=== PATIENT | male | born 1945 | race Caucasian/White ===

== ENCOUNTER → 2020-11-23 02:54 | Outpatient (CLI) | payer MEDICARE, SELFPAY ==
[2020-11-23 22:41] LABS: SARS-CoV-2 RNA PCR Negative
== END ==
PROVIDERS: PCP Family Medicine; Visit Provider Nurse Practitioner Family
DX: Z01.812 Encounter for preprocedural laboratory examination (principal); Z20.822 Contact with and (suspected) exposure to COVID-19
CPT/HCPCS: C9803; U0003; U0005

== ENCOUNTER 2021-11-02 12:35 | Outpatient (RCR) | payer MEDICARE, SELFPAY ==
[2021-11-02 12:50] VITALS: BP_SYST 155
--- NOTE | 2021-11-02 13:43 | PTOPEVAL ---
Thank you for referring Brody Mims to [facility].? He is scheduled to be seen for therapy? 1x/week for 4 weeks, per pt request 1x/wk only. Please review, sign, date and return this plan of care ROSE. I agree with and certify that the following plan of care is medically necessary. Referring Physician Date Attending Provider: Inocente Willingham MD Outpatient Past Medical History Past Medical History Source of Past Medical History Patient Neurological History Hx Cerebrovascular Accident (CVA) Yes: 2x, no residual effects Cardiovascular History Hx Hypertension Yes: meds Respiratory History Hx Respiratory Disorders No Significant History Gastrointestinal History Hx Gastrointestinal Disorders No Significant History Musculoskeletal History Hx Other Musculoskeletal Disorders Yes: B shoulder pain; R shoulder dislocation 2011 Endocrine History Hx Endocrine Disorders No Significant History Evaluation Information Diagnosis R shoulder pain Onset Apr 2021 Subjective Information gradual increase in shoulder Query Text:As Reported By Patient/ pain; chronic shoulder pain B Family Diagnostic Tests X-Rays For This Problem No MRI For This Problem No Other Tests For This Problem No Previous Treatments Previous Treatments For This Problem no PT Prior Level of Function Activity Level (Last 3 Months) Occupation retired Hand Dominance Right Activity of Daily Living Ability Independent Indoor/Home Mobility Independent Community Mobility Independent Stairs Ability Independent Functional Cognition (Planning, Shopping Independent , Taking Medications) Cooking Yes Cleaning Yes Laundry Yes Shopping Yes Driving Yes Home Setting Home Type Mobile Home Living Situation Alone Mobility Assistive Devices (Used Last 3 None Months) Comments Additional Prior Level of Function have assistance with cleaning Comments home 9 hours/wk; he does all the other tasks Pain Assessment Pain Scale Pain Scale Used Numeric (1 - 10) Self Report Pain Assessment R shoulder Pain Description Aching,Sharp Radicular Pain Location hurts in shoulder Pain Frequency Chronic,Continuous Other Pain Description aggravating pain--tired of putting up with it Lowest Pain Intensity 0 Greatest Pain Intensity 8 Pain Aggravating Factors Exercise/Activity Other Pain Aggravating Factors shoulder abduction; Pain B
--- NOTE | 2021-11-06 10:37 | PCPTNOTE ---
Patient did not show up for scheduled appointment this date; Patient answered phone call stated he didn't realize he would already have an appointment so soon after his evaluation. Asked patient if he was given a hand-out which he stated yes, just didn't look at it. Offered patient later appointment time stating he wouldn't be able to make it. Reminded him on next appointment November 15 @13:15.
--- NOTE | 2021-11-15 10:41 | PCPTNOTE ---
Patient called & cancelled scheduled appointment this date due to scheduling conflicts.
--- NOTE | 2021-11-20 09:21 | PCPTNOTE ---
Patient called & cancelled scheduled appointment this date due to family emergency.
--- NOTE | 2021-11-27 08:33 | PCPTNOTE ---
pt did not show for today's reeval; called pt and not able to leave voice mail box is full ;
--- NOTE | 2021-12-22 11:33 | PCPTNOTE ---
PHYSICAL THERAPY DISCHARGE 12-22-21 Attending Provider: Inocente Willingham MD Patient:Brody Mims Date of :1945 Mr. Mims has not returned for any further treatments since the initial evaluation for R shoulder pain on 11/02/2021, therefore he will be discharged at this time. The goals were not achieved. Thank you for referring this patient to [facility].
== END 2021-12-22 14:14 | disposition home or self-care (01) ==
LOC: ANHPT 12:35
PROVIDERS: PCP Family Medicine; Visit Provider Family Medicine
DX: M25.511 Pain in right shoulder (principal); G89.29 Other chronic pain
CPT/HCPCS: 97161; 99199

== ENCOUNTER 2021-12-12 09:57 | Emergency (ER) | payer MEDICARE, SELFPAY ==
--- NOTE | 2021-12-12 10:04 | ED.WEAKNESS ---
HPI - Weakness General Chief complaint: Weakness Stated complaint: weakness Time Seen by Provider: 12/12/21 10:04 Source: patient, family, RN notes reviewed and old records reviewed Mode of arrival: ambulatory Limitations: no limitations History of Present Illness HPI Narrative: 76-year-old male presents to the [facility] with increasing weakness over the last 2 weeks. 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 She states she was told to take him in to be evaluated by his family because they were concerned for him not eating and him feeling very weak. Patient reports he had cold-like symptoms approximately 2 weeks ago. Denies any runny nose, cough, shortness of breath. Not been able to eat and is concerned for weight loss. Patient appears pale. No diaphoresis. Denies any pain anywhere. Related Data Home Medications Medication Instructions Recorded Confirmed aspirin 81 mg tablet,delayed 81 mg PO DAILY 08/12/19 12/12/21 release (Adult Low Dose Aspirin) Allergies Allergy/AdvReac Type Severity Reaction Status Date / Time No Known Allergies Allergy Verified 12/12/21 09:58 Review of Systems Review of Systems: All systems reviewed & are unremarkable except as noted in HPI and below Constitutional: Constitutional: Reports as per HPI, Denies chills, Reports fatigue, Denies fever(s), Reports lethargy, Reports poor appetite and Reports weakness Eyes: Eyes: Reports no additional eye complaints ENT: Reports system reviewed and no additional complaints, except as documented Cardiovascular: Cardiovascular: Reports no additional cardiovascular complaints Respiratory: Respiratory: Reports no additional respiratory complaints Gastrointestinal: Gastrointestinal: Reports as per HPI, Reports no additional gastrointestinal complaints and Reports constipation Musculoskeletal: Musculoskeletal: Reports no additional musculoskeletal complaints Integumentary/Breasts: Skin/Breast: Reports system reviewed and no additional complaints, except as docu Neurologic: Reports system reviewed and no additional complaints, except as documented Psychiatric: Psychiatric: Reports no additional psychiatric complaints Allergic/Immunologic: Allergic/Immunologic: Reports no additional allergic/immunologic complaints [facility] Past Medical History Medical History BMI 25.0-25.9,adult Chronic right shoulder pain Family History Family History Sibling Family history of cardiac disorder Social History Social History Smoking status: Former smoker (Vapes now) Alcohol intake: current Comments At the time of my signature, I reviewed and agree with the nursing past medical, surgical, social, and family history. There is no relevant family history pertinent to the patient complaint. Exam Const: General: cooperative, no acute distress, alert, ill appearing chronically, uncomfortable and well nourished Nutritional Appearance: average body habitus and well nourished Orientation/consciousness: patient oriented x3 Limitations: no limitations HENMT: Head: normal to inspection Ears: external ears normal Face/Nose/Sinus: Normal external nose present Face and sinus: normal facial exam Mouth: Yes lip normal, Yes tongue normal and Yes moist mucous membranes abnormal Throat: posterior oropharynx normal and uvula midline Eyes: General: appearance normal, both eyes and all related structures Conjunctivae: conjunctival abnormality bilateral pallor Pupils: Equal, round and reactive pupils present Neck: Neck: normal visual inspection, no lymphadenopathy and no meningeal signs Chest: Chest palpation & inspection: normal inspection of the chest Resp: Effort & Inspection: normal respiratory effort and no use of accessory muscles Auscultation: clear to auscultation bilaterally, no crackl
[2021-12-12 10:06] VITALS: BP 141/57; PULSE 71; RESP 16; TEMP 36.5; O2SAT 99
--- NOTE | 2021-12-12 10:15 | ECG_ITS ---
Measurements Intervals [place] Rate: 70 P: 94 NM: 244 QRS: -38 QRSD: 80 T: 51 QT: 381 QTc: 412 Interpretive Statements SINUS RHYTHM WITH FIRST DEGREE AV BLOCK BASELINE ARTIFACT LEFT AXIS DEVIATION LOW QRS VOLTAGE SEPTAL MYOCARDIAL INFARCTION ABNORMAL ECG NO PREVIOUS ECG AVAILABLE FOR COMPARISON Electronically Signed On 12-12-2021 17:22:57 CDT by Moshe Waters M.D.
== END 2021-12-12 10:19 | disposition short-term general hospital (02) ==
PROVIDERS: Emergency Provider Nurse Practitioner; PCP Family Medicine
DX: R53.1 Weakness (principal); R63.8 Other symptoms and signs concerning food and fluid intake; R94.31 Abnormal electrocardiogram [ECG] [EKG]; F17.290 Nicotine dependence, other tobacco product, uncomplicated; Z79.82 Long term (current) use of aspirin
CPT/HCPCS: 93005; 99213; G0463

== ENCOUNTER 2021-12-12 11:25 | Emergency (ER) | payer MEDICARE, SELFPAY ==
--- NOTE | ~2021-12-12 | XR_ITS ---
EXAMINATION: XR chest 2V DATE: 12/12/2021 13:17 INDICATION: Upper respiratory symptoms. TECHNIQUE: Frontal and lateral views of the chest were obtained on 4 radiographs. COMPARISON: Chest 2 views 12/07/2014, CT abdomen and pelvis 11/17/2015 FINDINGS: There is stable mild scarring at the lung apices. No pleural effusion or pneumothorax. The heart size is normal. IMPRESSION: 1. Stable mild scarring at the lung apices. Reviewed, dictated and finalized at location B.
[2021-12-12 11:52] VITALS: BP 130/51; PULSE 73; RESP 16; TEMP 36.4; O2SAT 100
--- NOTE | 2021-12-12 11:54 | ECG_ITS ---
Measurements Intervals [place] Rate: 72 P: [place]: 274 QRS: -21 QRSD: 84 T: 66 QT: 370 QTc: 405 Interpretive Statements SINUS RHYTHM WITH FIRST-DEGREE AV BLOCK LOW-VOLTAGE QRS BORDERLINE LEFT AXIS DEVIATION CANNOT RULE OUT SEPTAL INFARCTION ABNORMAL ECG COMPARED TO ECG 12/12/2021 10:17:47 SUPRAVENTRICULAR RHYTHM NOW PRESENT Electronically Signed On 12-12-2021 17:19:10 CDT by Moshe Waters M.D.
[2021-12-12 12:15] LABS: Basophils Percent Auto 0.3 % (0.2-1.2); Eosinophils Absolute Auto 0.1 K/mm3 (0-0.3); Eosinophils Percent Auto 0.9 % (0-4.4); Hematocrit 41.9 % (42.0-52.0); Hemoglobin 14.5 g/dL (14.0-18.0); Immature Granulocyte Absolute 0.06 K/mm3 (0.00-0.031); Immature Granulocyte Percent A 0.6 % (0-0.5); Lymphocytes Absolute Auto 0.98 K/mm3 (0.9-3.2); Lymphocytes Percent Auto 9.2 % (18.3-44.2); Mean Corpuscular HGB Conc 34.6 g/dl (32-36); Mean Corpuscular Hemoglobin 34.4 pg (26-34); Mean Corpuscular Volume 99.3 fl (80-100); Mean Platelet Volume 9.4 fl (7.4-10.4); Monocytes Absolute Auto 1.4 K/mm3 (0.1-0.6); Monocytes Percent Auto 13.2 % (2.6-8.5); Neutrophils Absolute Auto 8.1 K/mm3 (1.3-6.7); Neutrophils Percent Auto 75.8 % (45.5-73.1); Platelet Count Result 319 k/mm3 (150-375); Red Blood Count 4.22 M/mm3 (4.6-6.20); Red Cell Distribution Width 12.2 % (11.5-14.5); White Blood Count 10.7 K/mm3 (4.5-10.0)
[2021-12-12 12:22] VITALS: BP 150/64; PULSE 71; RESP 15; O2SAT 100
[2021-12-12 12:25] LABS: Alanine Aminotransferase 22 U/L (6-50); Albumin Level 4.3 g/dL (3.5-5.1); Alkaline Phosphatase 79 U/L (38-126); Anion Gap 15 mmol/L (8-16); Aspartate Amino Transferase 27 U/L (17-59); Bilirubin,Total 0.4 mg/dL (0.2-1.3); Blood Urea Nitrogen 20 mg/dL (9-20); Carbon Dioxide 23 mmol/L (22-30); Chloride 96 mmol/L (98-107); Estimated CRCL calculation 58 ml/min; Estimated Glomerular Filt Rate > 60; Glucose 148 mg/dL (65-110); Potassium 3.8 mmol/L (3.4-5.0); Sodium 134 mmol/L (137-145)
--- NOTE | 2021-12-12 12:54 | ED.GENADULT ---
HPI - General Adult General Chief complaint: Weakness <MONIQUE Santos Last Filed: 12/12/21 18:42> Stated complaint: weakness <MONIQUE Santos Last Filed: 12/12/21 18:42> Time Seen by Provider: 12/12/21 12:19 <MONIQUE Santos Last Filed: 12/12/21 18:42> History of Present Illness HPI narrative: Patient is a 76-year-old male here for evaluation of generalized weakness and decreased appetite for the past week. Patient states that he did have upper respiratory infectious type symptoms for the past 2 weeks, including a runny nose and slight cough. Has been attempting OTC cough medicines with relief. fevers, chills, chest pain, shortness of breath, leg swelling. No nausea, vomiting, abdominal pain, diarrhea. Has not seen his primary care doctor for this issue. He was sent from an urgent care facility for evaluation of this issue today. <MONIQUE Santos Last Filed: 12/12/21 18:42> Related Data Home medications: Home Medications Medication Instructions Recorded Confirmed aspirin 81 mg tablet,delayed 81 mg PO DAILY 08/12/19 12/12/21 release (Adult Low Dose Aspirin) <MONIQUE Santos Last Filed: 12/12/21 18:42> Allergies/adverse reactions: Allergies Allergy/AdvReac Type Severity Reaction Status Date / Time No Known Allergies Allergy Verified 12/12/21 09:58 <MONIQUE Santos Last Filed: 12/12/21 18:42> Review of Systems Review of Systems: Gen: Denies fevers or chills Eyes: Denies eye pain or visual change ENT: Denies congestion Respiratory: Denies shortness of breath or cough CV: Denies chest pain or palpitations GI: Denies abdominal pain nausea, emesis or diarrhea denies burning, urgency, frequency or hematuria Musculoskeletal: Denies back pain or muscle pain Neuro: Reports weakness. Denies numbness, tingling or focal weakness Skin: Denies rash Except as documented, all other systems reviewed and negative <MONIQUE Santos Last Filed: 12/12/21 18:42> PMFSH Past Medical History Medical History: Medical History BMI 25.0-25.9,adult Chronic right shoulder pain <Yue Chen PA-C - Last Filed: 12/12/21 18:42> Family History Family History: Family History Sibling Family history of cardiac disorder <Yue Chen PA-C - Last Filed: 12/12/21 18:42> Social History Social History: Social History Smoking status: Former smoker (Vapes now) Alcohol intake: current <Yue Chen PA-C - Last Filed: 12/12/21 18:42> Exam Narrative: APPEARANCE: Well appearing, no pain in distress, well-nourished. Head: Normocephalic and atraumatic. EYES: PERRLA/EOMI, conjunctivae clear NOSE: No nasal drainage EARS: External ear normal in appearance THROAT: Oropharynx is clear. Mucous membranes are moist. NECK: Supple. No adenopathy, no masses. RESPIRATORY: Diminished breath sounds. Airway patent, respirations nonlabored. no rales, rhonchi, wheezing. CARDIOVASCULAR: Regular rate and rhythm without murmurs, rubs, or gallops. ABDOMINAL: Normoactive bowel sounds. Soft, nontender, nondistended. No rebound tenderness or guarding. MUSCULOSKELETAL: Extremities are warm and well-perfused. Moves all extremities well. No edema. NEURO: Normal speech. No focal neurologic deficits. SKIN: Skin is warm and dry. No rashes. PSYCHIATRIC: Normal affect/mood. 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 I agree with the assessment and plan as documented. <Bentley Montanez MD - Last Filed: 12/13/21 00:49> Vital Signs Vital signs: Vital Signs Temperature 97.5 F L 12/12/21 11:52 Pulse
[2021-12-12 13:58] VITALS: BP 148/81; PULSE 77; RESP 22; O2SAT 100
[2021-12-12 14:07] LABS: SARS-CoV-2 RNA PCR Negative
[2021-12-12 14:13] LABS: Mucus Urine Rare /lpf; Squamous Epithelial Cell Urine Rare /hpf (Few); WBC Urine 0-3 /hpf
[2021-12-12 14:21] LABS: Appearance Urine Clear (Clear); Bilirubin Urine Negative (Negative); Blood Urine Negative (Negative); Color Urine Yellow (Yellow); Glucose Urine UA Negative (Negative); Ketones Urine Negative (Negative); Leukocyte Esterase Ur Negative LEU/UL (Negative); Nitrate Urine Negative (Negative); Protein Urine Negative (Negative); Urobilinogen Urine 0.2 mg/dL (<2.0)
[2021-12-12 14:34] LABS: Add Urine Microscopic? NO
[2021-12-12 14:53] LABS: Magnesium 2.2 mg/dL (1.6-2.3); Phosphorus 3.9 mg/dL (2.5-4.5)
[2021-12-12 15:01] VITALS: BP 160/87; PULSE 72; RESP 20; O2SAT 97
== END 2021-12-12 15:02 | disposition home or self-care (01) ==
PROVIDERS: Emergency Medicine; Physician Assistant; Emergency Provider Preventive Medicine Aerospace Medicine; PCP Family Medicine
DX: J06.9 Acute upper respiratory infection, unspecified (principal); Z20.822 Contact with and (suspected) exposure to COVID-19; I44.0 Atrioventricular block, first degree; R94.31 Abnormal electrocardiogram [ECG] [EKG]
CPT/HCPCS: 36415; 71046; 80053; 81003; 83735; 84100; 85025; 93005; 99283; C9803; U0003; U0005

== ENCOUNTER 2022-08-13 12:08 | Emergency (ER) | payer MEDICARE, SELFPAY ==
--- NOTE | ~2022-08-13 | XR_ITS ---
EXAMINATION: XR foot LT min 3V DATE: 08/13/2022 12:39 INDICATION: Left foot injury. TECHNIQUE: 4 views of left foot were obtained. COMPARISON: None. FINDINGS: Bone alignment is normal. There is a nondisplaced fracture of base of fourth metatarsal. Th ere is mild osteoarthritis of first metatarsophalangeal joint and some of the interphalangeal joints and talonavicular joint. There are dystrophic calcifications medial to head of first metatarsal. IMPRESSION: 1. Nondisplaced fracture of base of fourth metatarsal. Reviewed, dictated and finalized at location A.
--- NOTE | ~2022-08-13 | XR_ITS ---
EXAMINATION: XR ankle LT min 3V DATE: 08/13/2022 12:39 INDICATION: Left ankle injury. TECHNIQUE: 4 views of left ankle were obtained. COMPARISON: None. FINDINGS: Bone alignment is normal. No fracture. There is mild osteoarthritis of talonavicular joint. Vascular calcifications are noted. There is soft tissue swelling about the ankle. IMPRESSION: 1. No fracture. Reviewed, dictated and finalized at location A. IMPRESSION: 1. No fracture.
[2022-08-13 12:27] VITALS: BP 151/60; PULSE 66; RESP 12; TEMP 35.9; O2SAT 100
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
== END 2022-08-13 12:56 | disposition home or self-care (01) ==
PROVIDERS: Emergency Provider Nurse Practitioner Family; PCP Family Medicine
DX: S92.345A Nondisplaced fracture of fourth metatarsal bone, left foot, initial encounter for closed fracture (principal); V48.4XXA Person boarding or alighting a car injured in noncollision transport accident, initial encounter; F17.290 Nicotine dependence, other tobacco product, uncomplicated
CPT/HCPCS: 73610; 73630; 99214; G0463

== ENCOUNTER 2023-09-01 12:54 | Emergency (ER) | payer MEDICARE, SELFPAY ==
--- NOTE | ~2023-09-01 | XR_ITS ---
EXAMINATION: XR shoulder RT min 2V DATE: 09/01/2023 13:20 INDICATION: Right shoulder pain and limited range of motion post fall TECHNIQUE: AP internally and externally rotated, AP oblique externally rotated and transscapular Y vi ews of the right shoulder were obtained. COMPARISON: None FINDINGS: No fracture identified. There is cephalad subluxation of the humeral head with respect to the glenoid and acromion. There is narrowing of the subacromial space with remodeling of the undersurface of the acromion. Lines consistent with rotator cuff tear. Mild to moderate glenohumeral osteoarthritis and severe acromioclavicular osteoarthritis. Visualized portion of the right lung is clear. IMPRESSION: Chronic rotator cuff tear with rotator cuff cuff arthropathy and mild to moderate glenohumeral and se shon acromioclavicular osteoarthritis. No acute osseous abnormality. Reviewed, dictated and finalized at location A. IMPRESSION: Chronic rotator cuff tear with rotator cuff cuff arthropathy and mild to modera te glenohumeral and severe acromioclavicular osteoarthritis. No acute osseous a bnormality.
[2023-09-01 13:08] VITALS: BP 114/57; PULSE 65; RESP 16; TEMP 36.9; O2SAT 100
--- NOTE | 2023-09-01 13:33 | ED.UPPEXIN ---
HPI - Extremity Injury (Upper) General Chief Complaint: Extremity Injury, Upper Stated Complaint: Rt Shoulder Pain Due to Fall Time Seen by Provider: 09/01/23 13:33 Source: patient Mode of arrival: ambulatory Limitations: no limitations History of Present Illness HPI narrative: 78-year-old male presents with complaint of pain to right shoulder, decreased range of motion for 3 weeks. Patient fell when getting up to use the bathroom. Denies hitting head. Patient did have a large bruise to right upper arm but has resolved. Patient reports cannot lift right arm, pain to right shoulder with movement but not at rest. All systems reviewed and negative except as noted above. Related Data Home Medications Medication Instructions Recorded Confirmed aspirin 81 mg tablet,delayed 81 mg PO DAILY 08/12/19 09/01/23 release (Adult Low Dose Aspirin) Allergies Allergy/AdvReac Type Severity Reaction Status Date / Time No Known Allergies Allergy Verified 09/01/23 12:58 Review of Systems Review of Systems: CONSTITUTIONAL: Denies fever, chills, or sweats. EYES: Denies visual changes, redness, or discharge. ENT: Denies rhinorrhea, congestion, sore throat, or otalgia. CARDIOVASCULAR: Denies chest pain, palpitations, or edema. RESPIRATORY: Denies cough or dyspnea. GASTROINTESTINAL: Denies abdominal pain, nausea, vomiting, or diarrhea. GENITOURINARY: Denies dysuria or hematuria. SKIN: Denies rash or itching. MUSCULOSKELETAL: Denies back pain . Reports pain and decreased range of motion to right shoulder. NEUROLOGIC: Denies headache, numbness, or weakness. PSYCHIATRIC: Denies anxiety or depression. All other systems reviewed are negative, except as documented in HPI. [facility] Past Medical History Medical History Bilateral leg numbness Bronchitis Chronic right shoulder pain Leg edema Family History Family History Sibling Family history of cardiac disorder Social History Social History Smoking status: Former smoker (Vapes now) Tobacco type: e-cigarettes/vaping Alcohol intake: former Comments At time of signature, agree with nursing past medical, surgical, social and family history. There is no relevant family history pertinent to the presenting complaint. Exam Narrative: GENERAL: This is a well-nourished, well-developed patient, in no apparent distress. HEAD: normocephalic, atraumatic. EYES: PERRL. Sclera clear/white. Vision is grossly intact. EARS: External ears normal NOSE: External nose normal NECK: Neck supple, non-tender without lymphadenopathy, masses or thyromegaly. CARDIOVASCULAR: Regular rate and rhythm without murmurs, gallops, or rubs. RESPIRATORY: Clear to auscultation. Breath sounds equal bilaterally. No wheezes, rales, or rhonchi. SKIN: warm, Dry, intact with no suspicious lesions or rash, good texture and turgor. NEURO: awake, alert, and oriented to person, place and time. There were no obvious focal neurologic abnormalities. EXTREMITIES: no tenderness on palpation of right shoulder.Unable to complete drop arm test due to patient not being able to lift Overhead. Unable to extend, flex, abduct more than 45 degree. Course Course Level of Care: Express Care Visit Vital Signs Vital signs: Vital Signs Temperature 36.9 C 09/01/23 13:08 Pulse Rate 65 09/01/23 13:08 Respiratory Rate 16 09/01/23 13:08 Blood Pressure 114/57 L 09/01/23 13:08 Pulse Oximetry 100 09/01/23 13:08 Oxygen Delivery Room Air 09/01/23 13:08 Temperature 36.9 C 09/01/23 13:08 Pulse Rate 65 09/01/23 13:08 Respiratory Rate 16 09/01/23 13:08 Blood Pressure 114/57 L 09/01/23 13:08 Pulse Oximetry 100 09/01/23 13:08 Oxygen Delivery Room Air 09/01/23 13:08 Reviewed MDM - Extremity Injury (Upper) MDM Narrative Medi
== END 2023-09-01 14:00 | disposition home or self-care (01) ==
PROVIDERS: Emergency Provider Nurse Practitioner Family; PCP Family Medicine
DX: S49.91XA Unspecified injury of right shoulder and upper arm, initial encounter (principal); W19.XXXA Unspecified fall, initial encounter; F17.290 Nicotine dependence, other tobacco product, uncomplicated
CPT/HCPCS: 73030; 99213; G0463

== ENCOUNTER 2024-05-14 07:42 | Outpatient (CLI) | payer MEDICARE, SELFPAY ==
--- NOTE | ~2024-05-14 | US_ITS ---
EXAMINATION: US retroperitoneal duplex ltd DATE: 05/14/2024 08:36 INDICATION: Right upper quadrant abdominal pain TECHNIQUE: Multiple grayscale, color Doppler, and pulsed Doppler images of the liver, gallbladder and hepatic and portal venous vasculature were obtained. COMPARISON: CT dated 11/17/2015 FINDINGS: Shadowing gallstones are seen within the otherwise normal-appearing gallbladder. There is normal dire ctional flow in the portal veins. The main portal vein measures 8 mm diameter with the right and left portal veins measuring 7 mm and 5 mm respectively. There is some increased pulmonary venous pulsatil ity identified in the right and in the main portal vein immediately proximal to its bifurcation. Norm al venous waveforms in the mid, left and right hepatic veins with normal directional flow and tetra i nflexional waveforms. Normal brisk systolic upstrokes in the hepatic artery which appears regular in rate and rhythm but with varying amplitudes which may be artifact of movement of the EDDIE during the r espiratory phase. IMPRESSION: 1. Unremarkable hepatic Doppler study with normal directional flow and waveforms in the hepatic joe ry and portal and hepatic veins. 2. Cholelithiasis. Reviewed, dictated and finalized at location L. 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 Unremarkable hepatic Doppler study with normal directional flow and wavefor ms in the hepatic artery and portal and hepatic veins. 2. Cholelithiasis.
--- OUTSIDE RECORDS SUMMARY | 2024-05-14 07:46 | XMS_ITS | Continuity of Care Document ---
Author Organization [facility] Address [address] [place] [address] [address] [place] [address] Phone Care Team Providers Care Documentum Consultant Name Role Phone [facility] Unavailable Unavail able Bony, Ester Unavailable Unavailable Procedures Procedure Date Frames Deluxe Progressive Lens, Polycarb Tax - Medical Post-op Follow-up Visit Post-op Follow-up Visit Post-op Follow-up Visit Remove Cataract, Insert Lens Office Consultation [employer] Advance Directives Directive Yes / No Effective Date File Name No Information Encounters Encounter Description Practice Location Reason(s) For Visit Diagnoses Date Provider Providers Copied on Encounter [facility], [address] [place] [address] [address], [place], [place], [id number], [place] tel:[phone] [facility] No Information 2-200 9 [facility]. [address] [place] [address], [address], [id number], [place]. tel:[phone] Referring Provider: Star churchill, [facility] [address], [address]. tel:[phone] sulting Provider: Ester Lovett, [address] [place], [address]. tel:[phone] [facility], [address] [place] [address] [address], [place], [place], [id number], [place] tel:[phone] [facility] No Information Nov-0 5-200 8 Krishnas[address] Star. [address], [place], [address], [place]. tel:[phone] [facility], [address], [place], [place], [id number], [place] tel:[phone] [facility] No Information Sep-2 4-200 8 Krishnas[address] Star. [address], [place], [address], [place]. tel:[phone] [facility], [address], [place], [place], [id number], [place] tel:[phone] [facility] No Information Sep-1 2-200 8 Krishnas[address] Star. [address], [place], [place], [facility], [place]. tel:[phone] [facility], [address], [place], [place], [id number], [place] tel:[phone] [facility] No Information Sep-1 1-200 8 Krish[address] Star[address], [place], [address], [place]. tel:[phone] Referring Provider: [place], [address]. tel:[phone] Office Consultation [facility], [address], [place], [place], [id number], [place] tel:[phone] [facility] No Information Aug-0 6-200 8 [address], [address], [place]. tel:[phone] Referring Provider: [place], [address]. tel:[phone] Family History Family Member Type Diagnosis Age At Onset No Information Payers Payer name Insurance type Covered green party ID Authoriza tion(s) No Information Social History Type Description Quantity Date Captured Comments Sex Male Smoking Status No Information Chief Complaint And Reason For Visit No Information Reason For Referral Reason For Referral No Information History Of Present Illness Encounter Date Complaint History Of Prese nt Illness No Information Functional Status Date Functional Assessmen t No Information Instructions Date Instruction Additional Infor mation No Information Assessments Type Assessment Date No Information Patient Care Teams Name Effective Dates (start - stop) Status Members No Information
== END 2024-05-14 07:43 | disposition home or self-care (01) ==
PROVIDERS: PCP Family Medicine; Visit Provider Physician Assistant Medical
DX: K80.20 Calculus of gallbladder without cholecystitis without obstruction (principal)
CPT/HCPCS: 93976

== ENCOUNTER 2024-07-20 08:23 | Outpatient (CLI) | payer MEDICARE, SELFPAY ==
--- NOTE | ~2024-07-20 | US_ITS ---
Limited Abdominal Sonogram: Real-time sonographic imaging of the right upper quadrant was performed. Clinical History: Abnormal blood chemistry findings Findings: The liver appears normal with no evidence of mass lesion or bile duct dilatation. Main por natalie vein demonstrates normal direction of flow. The gallbladder is well distended, and contains echog enic, shadowing gallstones. No gallbladder wall thickening. The common bile duct measures 4 mm. The visualized pancreas, aorta, and IVC are unremarkable. Impression: Cholelithiasis. Reviewed, dictated and finalized at location M. Impression: Cholelithiasis.
== END 2024-07-20 08:24 | disposition home or self-care (01) ==
PROVIDERS: PCP Family Medicine; Visit Provider Internal Medicine Gastroenterology
DX: K80.20 Calculus of gallbladder without cholecystitis without obstruction (principal); R79.89 Other specified abnormal findings of blood chemistry
CPT/HCPCS: 76705

== ENCOUNTER 2024-08-21 08:41 | Outpatient (CLI) | payer MEDICARE, SELFPAY ==
--- NOTE | ~2024-08-21 | XR_ITS ---
Clinical Indication: Wheezing PA and lateral views of the chest: Comparison: 12/12/2021 Findings: The lungs are clear, without evidence of focal consolidation or pleural effusion. Probable COPD. Cardiomediastinal silhouette is within normal limits. Bones and soft tissues are unremarkable. Impression: Clear lungs. Probable COPD. Reviewed, dictated and finalized at location . Impression: Clear lungs. Probable COPD.
== END 2024-08-21 08:42 | disposition home or self-care (01) ==
LOC: MICIMG 08:43
PROVIDERS: PCP Family Medicine; Visit Provider Physician Assistant Medical
DX: R06.2 Wheezing (principal); R63.4 Abnormal weight loss
CPT/HCPCS: 71046